=== PATIENT | male | born 1985 | race Caucasian/White ===

== ENCOUNTER → 2016-09-07 | Outpatient (CLI) | payer BC ==
--- NOTE | 2016-09-07 11:15 | DX ---
DEXA Bone Mineral Densitometry Clinical Indications: 31-year-old male referred by nephrology with a history of lupus who was on pre dnisone for about 10 years. The patient takes supplementary vitamin D, and exercises with weight odalis jessica and running 3-5 hours per week. Evaluate for osteoporosis. ICD 10 Diagnostic Code: Z92.29. Comparison: None. Technique: Bone Mineral Densitometry (BMD) by Dual Energy X-Ray Absorptiometry (DEXA) was performed utilizing the [employer] scanner. The lumbar spine was evaluated in the AP projection. Both hips and the left forearm were evaluated in the AP projection. Vertebral fracture assessment was also per formed. A FRAX score was not calculated in this young male as he is outside the age range of 40 to 90 . AP Lumbar Spine: The L1, L2, L3 and L4 vertebral bodies were evaluated. BMD: 1.305 gm/cm2 T-score: 0.6 SD Z-score: 0.7 SD AP Left Hip: Total BMD: 1.078 gm/cm2 T-score: -0.2 SD Z-score: 0.0 SD AP Right Hip: Femoral Neck BMD: 1.044 gm/cm2 T-score: -0.2 SD Z-score: -0.1 SD AP Left Forearm, /: BMD: 1.158 gm/cm2 T-score: 1.7 SD Z-score: 1.7 SD Vertebral Fracture Assessment: There is no significant fracture deformity. Conclusion: Considering the lowest measured site, the patient is within normal range. Recommendations: To prevent osteoporosis and to promote the patient's bone density, the following recommendations shou ld be considered: 1. Continue to pursue a regular regimen of weightbearing and muscle-strengthening exercises in order to reduce the risk of falls and fractures (as tolerated by the patient's general medical condition). 2. Ensure that total daily calcium uptake is 1500 mg (diet plus supplements). 3. Ensure that intake of vitamin D is 400 to 800 international units. 4. Consider follow up DEXA scan in two years to assess the rate of bone loss in this patient, if clin ically directed.
== END ==
LOC: BRMIMAGING 08:35
PROVIDERS: ATTEND Internal Medicine Nephrology
DX: Z13.820 Encounter for screening for osteoporosis (principal); Z92.29 Personal history of other drug therapy

== ENCOUNTER → 2018-04-25 | Outpatient (CLI) | payer OTHER | LOC: BMCIMAGING 15:04 | PROVIDERS: ATTEND Orthopaedic Surgery Hand Surgery | DX: M95.3 Acquired deformity of neck (principal) ==

== ENCOUNTER → 2018-05-01 | Outpatient (CLI) | payer OTHER | LOC: FIMAGING 11:07 | PROVIDERS: ATTEND Orthopaedic Surgery Hand Surgery | DX: S43.499A Other sprain of unspecified shoulder joint, initial encounter (principal); M62.512 Muscle wasting and atrophy, not elsewhere classified, left shoulder ==